=== PATIENT | male | born 1985 | race Caucasian/White ===

== ENCOUNTER 2018-07-18 11:20 | Emergency (ER) | payer OTHER ==
[2018-07-18] MEDS ORDERED: TDAP ADULT 0.5 ML INJ (BOOSTRIX) IM ONE (11:38)
--- NOTE | 2018-07-18 11:38 | EDPHY ---
H & P Time Seen by Provider: 07/18/18 11:29 HPI/ROS: CHIEF COMPLAINT: Left middle digit laceration HISTORY OF PRESENT ILLNESS: 33-year-old [id number] male with out-of- date tetanus was at work, sustained a laceration was left middle digit distal phalanx dorsal aspect PHYSICAL EXAM (Prior to examination, patient consented to physical exam, hands were washed and my usual and customary physical exam procedures followed) 1) GENERAL: Well-developed, well-nourished, alert and oriented. Appears to be in no acute distress. 2) HEAD: Normocephalic 3) HEENT: sclera anicteric 4) LUNGS: Breathing comfortably. 5) SKIN: No skin laceration adjacent to the nail. 6) MUSCULOSKELETAL: Left middle digit distal phalanx dorsal aspect 1.5 cm laceration involving the nail. The underlying nail bed is not visualized due to the nail being in place. 7) NEUROLOGIC: Full sensation two-point discrimination intact distally Smoking Status: Never smoked Constitutional: Initial Vital Signs Temperature (C) 36.7 C 07/18/18 11:23 Heart Rate 52 L 07/18/18 11:23 Respiratory Rate 18 07/18/18 11:23 Blood Pressure 127/90 H 07/18/18 11:23 O2 Sat (%) 97 07/18/18 11:23 O2 Delivery Mode Room Air Allergies/Adverse Reactions: No Known Allergies Allergy (Unverified 07/18/18 11:26) Home Medications: Medication Instructions Recorded Albuterol 04/30/14 Albuterol Hfa Anes Only [Proair 2 puffs IH Q4 PRN #1 mdi 04/30/14 Hfa Anes Only] predniSONE [predniSONE] 60 mg PO DAILY 3 Days tab 04/30/14 Cephalexin [Keflex] 500 mg PO TID 5 Days cap 07/18/18 MDM/Departure - MDM Procedures: Procedure: Laceration repair. I explained the indications, risks and benefits for both laceration repair and anesthetic administration. Verbal consent was obtained from the patient. The laceration on the left middle digit was anesthetized using 0.5% bupivicaine without epinephrine digital nerve block. After anesthetic administered the patient was observed for a period of time and had no apparent adverse effects. The wound was cleaned, prepped, draped in normal sterile fashion and explored to its base. No foreign body seen, no foreign bodies palpated. I recommended removing the nail to visualized the underlying nail bed however declined this. 1 to the risks of declining this including, but not limited to, in appropriate growth of nail. He verbalized understanding of this. I believe him to have decision-making capacity. Two simple interrupted 5-O Ethilon sutures were placed The wound repair was simple. The procedure was performed by myself. Patient has been informed that scarring will occur, although efforts have been made to minimize this. Medications Given: Discontinued Medications Diphtheria/Tetanus/Acell Pertussis (Boostrix) 0.5 ml IM .ONCE ONE Stop: 07/18/18 11:39 Last Admin: 07/18/18 11:54 Dose: 0.5 ml ED Course/Re-evaluation: Patient declined removal of the nail to visualize the underlying nail bed. He has been informed the nail bed lacerations not ruled out. I have recommend follow up with Hand surgery as well as work comp provider as is a work comp related injury. Started on prophylactic antibiotics. Tetanus has been updated. Patient feels comfortable being discharged. All questions and concerns addressed by myself. Patient given my usual and customary discharge precautions and instructions regarding their clinical impression. Care of patient under supervision of secondary supervising physician Dr Ledezma . - Depart Disposition: Home, Routine, Self-Care Clinical Impression: Laceration left middle digit Condition: Good Instructions: Laceration (ED), Care For Your Stitches (ED) Additional Instructions: Return to the ER if you develop redness, swelling, discharge, warmth to the wound, red streaks going up your arm, or any other symptoms that concern you. Stand Alone Forms: Work Comp Follow Up Prescriptions: Cephalexin [Keflex] 500 mg PO TID 5 Days cap Referrals: Mello Purdy MD [Medical Doctor] - 2-3 days, call for appt. Return, to the ER in 10 days for suture removal [Other] - As per Instructions
[2018-07-18 12:51] VITALS: BP 122/82
== END 2018-07-18 12:50 | disposition home or self-care (01) ==
PROC: 0HQGXZZ Repair Left Hand Skin, External Approach (ICD-10-PCS; principal; 2018-07-18)
DX: S61.318A Laceration without foreign body of other finger with damage to nail, initial encounter (principal); Z23 Encounter for immunization; Y99.0 Civilian activity done for income or pay